=== PATIENT | female | born 1985 | race Caucasian/White ===

== ENCOUNTER 2017-04-02 05:19 | Emergency (ER) | payer BC ==
[~2017-04-02] VITALS: Ht 170.2 cm; Wt 60.1 kg
[2017-04-02 05:22] VITALS: BP 114/78
== END 2017-04-02 06:00 | disposition home or self-care (01) ==
LOC: ED 05:54
DX: H66.002 Acute suppurative otitis media without spontaneous rupture of ear drum, left ear (principal)
CPT/HCPCS: 99283